=== PATIENT | female | born 1950 | race Native Hawaiian/Other Pacific Islander ===

== ENCOUNTER 2017-05-09 07:42 | Day surgery (SDC) | payer BC ==
[2017-05-09 08:44] LABS: PLATELET COUNT 88 K/uL (152-353)
== END 2017-05-09 11:30 | disposition home or self-care (01) ==
LOC: OR 07:42
PROVIDERS: Student in an Organized Health Care Education/Training Program
PROC: 0DBK8ZZ Excision of Ascending Colon, Via Natural or Artificial Opening Endoscopic (ICD-10-PCS; principal; 2017-05-09)
PROC: 0DBL8ZZ Excision of Transverse Colon, Via Natural or Artificial Opening Endoscopic (ICD-10-PCS; 2017-05-09)
PROC: 0DBN8ZZ Excision of Sigmoid Colon, Via Natural or Artificial Opening Endoscopic (ICD-10-PCS; 2017-05-09)
PROC: 0DBM8ZZ Excision of Descending Colon, Via Natural or Artificial Opening Endoscopic (ICD-10-PCS; 2017-05-09)
DX: D12.2 Benign neoplasm of ascending colon (principal); D12.4 Benign neoplasm of descending colon; D12.3 Benign neoplasm of transverse colon; K63.5 Polyp of colon; K57.30 Diverticulosis of large intestine without perforation or abscess without bleeding; K64.8 Other hemorrhoids; Z12.11 Encounter for screening for malignant neoplasm of colon; K92.1 Melena
CPT/HCPCS: 85027; J1100; J2001; J2250; J2405; J2704; J3010; S0028

== ENCOUNTER 2018-05-31 10:05 | Outpatient (CLI) | payer OTHER ==
[2018-05-31 10:33] LABS: PLATELET COUNT 109 K/uL (152-353)
== END 2018-05-31 19:18 | disposition home or self-care (01) ==
LOC: LABW 10:05
PROVIDERS: Internal Medicine Endocrinology, Diabetes & Metabolism
DX: Z79.899 Other long term (current) drug therapy (principal)
CPT/HCPCS: 36415; 85027